=== PATIENT | female | born 1980 | race Caucasian/White ===

== ENCOUNTER → 2022-04-14 16:40 | Outpatient (CLI) | payer OTHER, MEDICAID, SELFPAY ==
[2022-04-14 17:16] LABS: COVID19 -Nasal RAPID Negative (Negative)
== END ==
PROVIDERS: PCP Physician Assistant Medical; Visit Provider Obstetrics & Gynecology
DX: Z20.822 Contact with and (suspected) exposure to COVID-19 (principal); Z01.812 Encounter for preprocedural laboratory examination
CPT/HCPCS: 87635; C9803

== ENCOUNTER 2022-04-17 12:20 | Day surgery (SDC) | payer OTHER, MEDICAID, SELFPAY ==
[2022-04-10 10:40] VITALS: BMI 30.8
[2022-04-17] VITALS (7 sets, daily range): BP systolic 97–144; BP diastolic 8–85; PULSE 64–79; RESP 13–20; TEMP 36.1–36.6; O2SAT 97–100; BMI 30.4
--- NOTE | 2022-04-17 | PATH_ITS ---
[facility] Accession Number: [id number] . 01 Material submitted: . endometrium - ENDOMETRIAL CURETTINGS . 01 Diagnosis: A. Endometrium, Curettage: Inactive endometrium in association with endometrial polyp(s) in a background of decidualized stroma consistent with progesterone therapy/effect, and focal breakdown. No evidence of endometrioid intraepithelial neoplasia or malignancy. MRV 04/24/2022 1052 Local . 01 Electronically signed: . Idalia Holt MD, Pathologist NPI- [id number] . 01 Gross description: . ENDOMETRIAL CURETTINGS: Received in formalin are multiple fragment(s) of clark, soft tissue measuring 2.5 x 2.0 x 1.0 cm in aggregate submitted entirely in 2 cassette(s) /QBJ 04/19/2022 0502 Local . 01 Pathologist provided ICD-10: N94.6, N84.0 . 01 CPT . 305913 Specimen Comment: A courtesy copy of this report has been sent to [facility] Performed at: 01 [facility] [address] [place] [address], [place], [place] [id number] MD Sixto Skelton MD Phone: [phone]
--- NOTE | 2022-04-17 13:12 | PM.PREOP ---
Pre-operative Note COVID-19 COVID-19 status: Negative Result date/Date tested (Pos, Neg/Pending): 04/14/22 Interval Note History & Physical reviewed/Exam performed by Physician: Yes Changes to H&P: No
[2022-04-17 13:14] LABS: Add Manual Diff / Slide Review NO; Basophils Absolute Auto 100 /uL (0-100); Eosinophils Absolute Auto 100 /uL (0-450); Eosinophils Percent Auto 0.9 % (2-4); Hematocrit 36.1 % (36-46); Lymphocytes Absolute Auto 1600 /uL (1100-4500); Lymphocytes Percent Auto 27.7 % (25-40); Mean Corpuscular HGB Conc 33.2 % (30-36); Mean Corpuscular Hemoglobin 29.5 PG (26-34); Mean Corpuscular Volume 88.8 fL (80-100); Monocytes Absolute Auto 600 /uL (0-900); Monocytes Percent Auto 10.2 % (3-14); Neutrophils Absolute Auto 3400 /uL (1500-7000); Neutrophils Percent Auto 60.2 % (50-75); Platelet Count 213 X10^3/uL (150-400); Red Blood Cell Count 4.06 X10^6/uL (4.0-5.2); White Blood Cell Count 5.7 X10^3/uL (4.5-11.0)
[2022-04-17] MEDS: LACTATED RINGERS 1,000 ML 100 ML IV ×2 (13:14→15:02)
[2022-04-17 13:25] LABS: Alanine Aminotransferase 23 IU/L (<35); Albumin 3.6 g/dL (3.5-5.0); Albumin Globulin Ratio 1.3 (1.0-2.8); Alkaline Phosphatase 47 U/L (38-126); Aspartate Aminotransferase 24 IU/L (14-36); BUN Creatinine Ratio 9.7 (6-22); Bilirubin Total 0.5 mg/dL (0.2-1.3); Blood Urea Nitrogen 7 mg/dL (7-17); Calcium 8.1 mg/dL (8.4-10.2); Carbon Dioxide 20 mmol/L (22-32); Chloride 109 mmol/L (98-107); Estimated Glomerular Filt Rate > 60 mL/min (>60); Globulin 2.8 g/dL (1.7-4.1); Glucose 84 mg/dL (70-100); HEMOLYSIS < 15 (0-50); Potassium 3.6 mmol/L (3.4-5.1); Sodium 138 mmol/L (137-145); Total Protein 6.4 g/dL (6.3-8.2)
[2022-04-17] MEDS: ACETAMINOPHEN IV 1,000 MG/100 ML VIAL 400 MG IV (13:45)
[2022-04-17] MEDS: BUPIVACAINE 0.25% (PF) VIAL 30 ML INJ (14:20)
--- NOTE | 2022-04-17 14:25 | SUR.OPER ---
Lithotomy on padded OR bed, head on pillow, arms secured on padded arm boards at <90 degrees abduction. Legs secured in padded yellow fins stirrups.
--- NOTE | 2022-04-17 16:03 | PM.GYNOP.1 ---
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 On a radiology ultrasound there was suspicion for an arcuate uterus . On follow-up office transvaginal ultrasound to plan possible type of endometrial ablation, evaluate cavity, uterine cavity did not appear arcuate, but there was suggestion of a small endometrial polyp near the fundus. She desired an endometrial ablation to treat her heavy menses. She was also consented to possilbe removal of endometrial polyp and endometrial curettage for help for removal of endometrial polyp if needed. She had a prior normal office endometrial biopsy. She understands an endometrial ablation will make her sterile, and also that she should not conceive. She confirms she is not interested in childbearing. She also desired proceeding with diagnostic laparoscopy to rule out endometriosis as a cause of her chronic pelvic pain, due to family history of endometriosis. She is thus scheduled for diagnostic laparoscopy, hysteroscopy, D and C, possible removal of an endometrial polyp, and NovaSure endometrial ablation Surgeon: Mary Ellen Montez Anesthesia Type: General Operative Notes Findings: Bimanual examination: Normal size anteverted uterus, slightly to her right of midline. Diagnostic laparoscopy was negative. Laparoscopy showed a normal abdomen and pelvis. There were no upper abdominal lesions or pelvic adhesions. The liver and gallbladder appeared normal. The uterus was normal shape and size, without masses. The ovaries were normal bilaterally, including on inspection of the inferior surface of the ovaries. The fallopian tubes were normal bilaterally. There were no signs of pelvic endometriosis. Her anterior cul-de-sac, posterior cul-de-sac and bilateral pelvic sidewalls including ovarian fossa was normal. No endometriosis throughout the pelvis. On hysteroscopy the endocervical canal was normal in appearance. On inspection of the endometrial cavity, there was a small, approximately 1/2 cm to 1 cm raised area coming off her left posterior lateral uterine wall, mildly lobulated appearance, white and smooth-walled, appearing consistent with a very small endometrial polyp versus raise polypoid tissue. On removal with polyp forceps, several small pieces of polypoid tissue seen. The endometrium was otherwise thin normal in appearance, consistent with her recent progesterone use. Endometrial cavity was normal in appearance, regular shape. The tubal ostia were visualized bilaterally. No other masses seen. No submucosal fibroids. On hysteroscopy post ablation, there was good ablation effect noted throughout the endometrial cavity, only a small amount of pink tissue seen just at the uterine fundus in the midline. Closure Type: primary Specimen(s): endometrial curettings (with fragments of endometrial polyps) Estimated blood loss (mL): 10 Blood products transfused: none Procedure in detail: IV fluids: 1400 mL crystalloid NovaSure settings: Uterine length 5 cm, with 4.5 cm. NovaSure procedure power 124 ratliff, total ablation time 1:00 minutes. After being properly identified she was taken to operating room. After an adequate level of general anesthesia was obtained, she was placed in Lukasz stirrups in the dorsal lithotomy position. Bimanual examination was performed. She was then prepped and draped in routine sterile fashion. A time-out was taken the patient procedure was identified. She had voided just prior to the procedure. Attention was placed vaginally where an open-sided Graves speculum was placed. The anterior cervix was grasped with an Allis clamp. The cervix was dilated to a 7mm to accommodate the ZUMI intrauterine manipulator. The uterus with cervix was sounded to 8 cm and the Zumi was placed. Cervical length was noted to be approx 3.5 cm. The Allis clamp was removed. Attention was placed abdominally where after injection of 2 mL of local anesthesia a small vertical infraumbilical incision was made. The abdomen was elevated and a Veress needle was placed without difficulty. Drop test confirmed intraperitoneal placement. The CO2 gas was connected. Opening pressure was low. The abdomen was insufflated with CO2 gas to 4 L. The Veress was removed. A 5 mm visiport trocar was placed under direct visualization. The camera was placed and intraperitoneal placement was confirmed. Inferior to the port site appeared atraumatic. The patient was placed in mild Trendelenburg. There were no noted pelvic adhesions. At this time a secondary 5 mm port was placed in the right mid abdomen lateral to the umbilicus after injection with local anesthesia. A blunt probe was placed. The patient was placed in Trendelenburg. The bowel was pushed out of the pelvis. The uterine manipulator was used to elevate the uterus and the pelvis was inspected with the above normal findings. There was no endometriosis or adhesions. The upper abdomen was inspected as well with normal findings. The laparoscopy portion was ended. The CO2 gas was allowed to escape from the abdomen. The ports were removed. The incisions were closed with subcuticular suture of 4 0 Monocryl. Steri-Strips and sterile dressings were placed. Attention was placed back vaginally where the balloon was desufflated and the intrauterine manipulator was removed. An open-sided Graves speculum was placed. The anterior cervix was now grasped with a single-tooth tenaculum. The Graves speculum was then changed to a weighted speculum. The cervix was further dilated to 7mm to accommodate the diagnostic hysteroscope. The hysteroscope was passed without difficulty. Normal saline solution was used as the uterine distention medium. A small polyp, verses focal raised polypoid endometrial tissue, was noted on her left posterior lateral uterine wall. No other abnormal findings. The left tubal ostia was visible. The right tubal ostia was visible after zooming in past an area of a blood clot, near the left cornua, likely from prior intrauterine manipulator placement. Later after D&C this tube ostia could be more clearly visible on repeat hysteroscopy, and uterine cavity confirmed to be normal shape. The hysteroscope was removed. Polyp forceps were placed with attention to the area of the polyp and several small pieces , approximately 1/4 to 0.5 cm size of polypoid tissue was obtained. The hysteroscope was replaced and some polypoid tissue still noted at the left lateral sidewall, but the area was decreased in size. Repeat polyp forceps was placed and then an endometrial curette was placed with curettage directed to this area for additional polypoid tissue. The curette was also directed to the area near the right fundus with the blood clot had been noted. On repeat inspection with the hysteroscope, her right tubal ostia could now be seen well and the blood clot was gone. There were no polyps or other abnormalities in the right fundus. The area of the left lateral polyp did still have a small amountof raised tissue but was mostly removed. Hysteroscope was removed. Global endometrial curettage was then performed for some additional tissue. This was all sent as 1 specimen on [facility]. Repeat inspection with the hysteroscope attempted but after the D&C it was too bloody for good visualization. The NovaSure device was opened. The NovaSure was inspected and the array noted to be intact and opens to the appropriate width. The NovaSure sound was then used and uterine cavity length measured 5 cm, with total cervical and uterine length measuring 8.5 cm. The NovaSure device was placed into the uterine cavity. The NovaSure device was then seated. Uterine width measured 4.5 cm. The cervical collar was pushed against the cervix. After uterine length of 5 cm and width 4.5 cm were entered into the NovaSure machine, the cavity integrity test was performed and passed. The NovaSure device was enabled and the ablation cycle started. After 1.00 minutes the ablation finished. The cervical collar was pulled back. The NovaSure array was pulled back and the device was removed without difficulty. Inspection of the NovaSure array revealed it to be intact. Repeat hysteroscopy was performed and there was noted to be good cautery effect throughout the endometrial cavity. There was still a small amount of pink tissue noted near her fundus only. The cautery effect extended down to just above her internal cervical os. The procedure was then ended. The hysteroscope was removed. The tenaculum was removed. There was some light bleeding from her left tenaculum site which ceased after pressure. She tolerated the procedure well and went to recovery room in stable condition. Complications: none Post-operative Condition: stable Disposition: PACU Plan for aftercare: Discharge home. Follow-up appointment in 2-4 weeks.
== END 2022-04-17 16:33 | disposition home or self-care (01) ==
PROVIDERS: PCP Physician Assistant Medical; Referring Provider Obstetrics & Gynecology; Visit Provider Obstetrics & Gynecology
PROC: 0U5B8ZZ Destruction of Endometrium, Via Natural or Artificial Opening Endoscopic (ICD-10-PCS; CPT 58563; principal; 2022-04-17 13:30)
PROC: (CPT 49320; 2022-04-17 13:30)
DX: N94.6 Dysmenorrhea, unspecified (principal); N92.0 Excessive and frequent menstruation with regular cycle; N84.0 Polyp of corpus uteri
CPT/HCPCS: 49320; 58563; 00840; 36415; 80053; 81025; 85025; 86850; 86870; 86900; 86901; J0131; J1100; J1170; J1885; J2405; J2704